=== PATIENT | female | born 1960 | race Caucasian/White ===

== ENCOUNTER 2024-11-30 12:46 | Outpatient (REF) | payer OTHER, SELFPAY | END 2024-11-30 12:47 | disposition home or self-care (01) | LOC: HO.SH 12:46 | PROVIDERS: Visit Provider Internal Medicine | DX: Z01.118 Encounter for examination of ears and hearing with other abnormal findings (principal); H90.3 Sensorineural hearing loss, bilateral; H93.12 Tinnitus, left ear | CPT/HCPCS: 92550; 92557 ==